=== PATIENT | male | born 1995 | race Two or more races ===

== ENCOUNTER 2019-03-18 10:58 | Emergency (ER) | payer MEDICAID, OTHER ==
[~2019-03-18] VITALS: Ht 182.9 cm; Wt 59.0 kg
--- NOTE | 2019-03-18 11:30 | NUR ---
BIBFATHER FROM HOME, C/O HEADACHE X3 DAYS. PATIENT A/OX4, BREATHING EVEN AND UNLABORED, NOS OB NOTED, NEEDS ATTENDED, KEPT COMFORTABLE.
[2019-03-18] MEDS ORDERED: diphenhydrAMINE HCL 50 MG/ML VIAL ONE (11:51)
[2019-03-18] MEDS ORDERED: METOCLOPRAMIDE HCL 10 MG/2 ML VIAL ONE (11:51)
[2019-03-18] MEDS ORDERED: KETOROLAC TROMETHAMINE INJ 30 MG/ML VIAL ONE (11:51)
--- NOTE | 2019-03-18 11:55 | NUR ---
IV LINE ESTABLISHED, BLOOD DRAWN AND SENT TO LAB
[2019-03-18 11:58] LABS: BASOPHILS % (AUTO) 0.4 % (0.0-2.0); EOSINOPHILS % (AUTO) 0.1 % (0.0-6.0); HEMATOCRIT 43 % (39-51); HEMOGLOBIN 15.1 g/dL (13.5-17.5); LYMPHOCYTES # (AUTO) 0.3 /CMM (0.8-4.8); LYMPHOCYTES % (AUTO) 10.6 % (20.0-44.0); MEAN CORPUSCULAR HGB CONC 35 g/dl (31.0-36.0); MEAN CORPUSCULAR VOLUME 94 fL (80-96); MONOCYTES # (AUTO) 0.3 /CMM (0.1-1.30); MONOCYTES % (AUTO) 10.8 % (2.0-12.0); NEUTROPHILS # (AUTO) 2.3 /CMM (1.8-8.9); NEUTROPHILS % (AUTO) 78.1 % (43.0-81.0); PLATELET COUNT (AUTO) 164 /CMM (150-450); RED BLOOD CELL COUNT(AUTO) 4.58 MIL/uL (4.5-6.0); WHITE BLOOD COUNT (AUTO) 2.9 K/uL (4.3-11.0)
[2019-03-18] MEDS ORDERED: METOCLOPRAMIDE HCL 10 MG/2 ML VIAL IV ONE (12:00)
[2019-03-18] MEDS ORDERED: diphenhydrAMINE HCL 50 MG/ML VIAL IV ONE (12:00)
[2019-03-18] MEDS ORDERED: IV NS 0.9% 1,000 ML BAG IV ONE (12:00)
[2019-03-18] MEDS ORDERED: KETOROLAC TROMETHAMINE INJ 30 MG/ML VIAL IV ONE (12:00)
[2019-03-18 12:18] LABS: CREATININE 0.8 mg/dL (0.6-1.3)
[2019-03-18 12:23] LABS: CALCIUM, SERUM 8.4 mg/dL (8.5-10.1)
--- NOTE | 2019-03-18 13:02 | NUR ---
Patient discharged to home in stable condition. Written and verbal after care instructions given. Patient verbalizes understanding of instruction. IV removed. Catheter intact and site benign. Pressure and 4x4 applied to site. No bleeding noted.
[2019-03-18 13:03] VITALS: BP 118/77
--- NOTE | 2019-03-18 13:07 | NUR ---
UNABLE TO DEPART AT THIS TIME.
== END 2019-03-18 13:07 | disposition home or self-care (01) ==
LOC: ER 10:58
DX: J11.1 Influenza due to unidentified influenza virus with other respiratory manifestations (principal)
CPT/HCPCS: 36415; 80048; 85025; 85730; 87804 ×2; 96374; 96375; 99283; J1200; J1885; J2765; J7030 ×2

== ENCOUNTER 2019-04-06 14:40 | Emergency (ER) | payer SELFPAY ==
[~2019-04-06] VITALS: Ht 182.9 cm; Wt 59.0 kg
[2019-04-06 16:22] VITALS: BP 120/67
== END 2019-04-06 17:48 | disposition home or self-care (01) ==
LOC: ER 14:48
DX: Z20.2 Contact with and (suspected) exposure to infections with a predominantly sexual mode of transmission (principal); Z72.9 Problem related to lifestyle, unspecified